=== PATIENT | female | born 1955 | race Caucasian/White ===

== ENCOUNTER 2018-04-20 11:10 | Emergency (ER) | payer MEDICARE, OTHER ==
[~2018-04-20] VITALS: Ht 160 cm; Wt 85.0 kg
[2018-04-20 11:15] VITALS: BP 113/73
== END 2018-04-20 12:03 | disposition home or self-care (01) ==
LOC: ED 11:50
DX: L02.211 Cutaneous abscess of abdominal wall (principal)
CPT/HCPCS: 99283

== ENCOUNTER 2019-08-10 15:41 | Emergency (ER) | payer MEDICARE, OTHER ==
[~2019-08-10] VITALS: Ht 160 cm; Wt 85.3 kg
[2019-08-10] MEDS ORDERED: LEVO75TA PO (16:25)
[2019-08-10] MEDS ORDERED: SPIR25TA5 PO (16:25)
[2019-08-10] MEDS ORDERED: ROSU10TA2 PO (16:25)
[2019-08-10] MEDS ORDERED: ALPR0.5T6 PO (16:25)
[2019-08-10] MEDS ORDERED: LISI-167 PO (16:25)
[2019-08-10] MEDS ORDERED: PARO40TA3 PO (16:25)
[2019-08-10] MEDS ORDERED: POTASSIUM PEG (16:25)
--- NOTE | 2019-08-10 16:31 | NUR ---
pt to ed for "green slime" coating mouth upon waking every morning x1 week. pt has hx cpod and wears cpap at [facility]. pt continues to smoke at least 1 ppd and has for 40 years. pt connected to monitors. vss on ra with spo2 >92%. no needs expressed. call light within reach. awaiting edmd assessment.
[2019-08-10 17:11] VITALS: BP 165/104
--- NOTE | 2019-08-10 17:18 | NUR ---
PT RESTING IN ROOM. VSS. NO NEEDS EXPRESSED. CALL LIGHT WITHIN REACH. AWAITING EDMD ASSESSMENT.
--- NOTE | 2019-08-10 17:40 | NUR ---
PT TO XR.
--- NOTE | 2019-08-10 17:46 | NUR ---
PT BACK FROM XR.
--- NOTE | 2019-08-10 18:01 | NUR ---
XR RESULTED. CHART UP FOR RECHECK.
== END 2019-08-10 18:36 | disposition home or self-care (01) ==
LOC: ED 17:46
DX: J20.9 Acute bronchitis, unspecified (principal); J98.4 Other disorders of lung; I10 Essential (primary) hypertension
CPT/HCPCS: 71046; 99283